=== PATIENT | male | born 1985 | race Two or more races ===

== ENCOUNTER 2023-08-18 20:06 | Outpatient (CLI) | payer OTHER | END 2023-08-18 23:59 | disposition critical access hospital (66) | LOC: EMS 20:06 | DX: R45.851 Suicidal ideations (principal) | CPT/HCPCS: A0425; A0429 ==

== ENCOUNTER 2023-08-18 20:36 | Emergency (ER) | payer OTHER ==
[2023-08-18 21:17] LABS: MUDS CUTOFF CONCENTRATIONS CUTOFF CONC BELOW:
[2023-08-18 21:23] LABS: BILIRUBIN,URINE NEGATIVE (NEGATIVE); GLUCOSE, URINE (UA) NEGATIVE (NEGATIVE); KETONES,URINE (UA) NEGATIVE (NEGATIVE); LEUKOCYTE ESTERASE, URINE NEGATIVE (NEGATIVE); NITRITE,URINE NEGATIVE (NEGATIVE); OCCULT BLOOD,URINE NEGATIVE (NEGATIVE); PROTEIN,URINE NEGATIVE (NEGATIVE); UROBILINOGEN,URINE 0.2 (NORMAL) E.U./dL (NORMAL)
[2023-08-18 21:24] LABS: CLARITY,URINE CLEAR (CLEAR)
[2023-08-18 21:25] LABS: BASOPHILS # (AUTO) 0.1 10^3/uL (0.0-0.1); BASOPHILS % (AUTO) 0.7 %; EOSINOPHILS # (AUTO) 0.1 10^3/uL (0.0-0.7); EOSINOPHILS % (AUTO) 1.4 %; HCT - HEMATOCRIT 43.8 % (42.0-52.0); HGB - HEMOGLOBIN 14.9 g/dL (14.0-18.0); LYMPHOCYTES # (AUTO) 1.4 10^3/uL (1.5-3.5); LYMPHOCYTES % (AUTO) 13.3 %; MEAN CORPUSCULAR HEMOGLOBIN 30.1 pg (27.0-31.0); MEAN CORPUSCULAR VOLUME 88.5 fL (80.0-94.0); MEAN PLATELET VOLUME 10.1 fL (7.4-11.4); MONOCYTES # (AUTO) 0.5 10^3/uL (0.0-1.0); NEUTROPHILS # (AUTO) 8.2 10^3/uL (1.5-6.6); NEUTROPHILS % (AUTO) 79.1 %; PLT - PLATELET COUNT 304 10^3/uL (130-450); RED BLOOD COUNT 4.95 10^6/uL (4.70-6.10); RED CELL DISTRIBUTION WIDTH 13.2 % (12.0-15.0); WHITE BLOOD COUNT 10.3 x10^3/uL (4.8-10.8)
[2023-08-18 21:35] LABS: AMPHETAMINE SCREEN,URINE NEGATIVE (NEGATIVE); BARBITURATE SCREEN,UR NEGATIVE (NEGATIVE); BENZODIAZEPINES SCREEN, URINE NEGATIVE (NEGATIVE); COCAINE SCREEN URINE NEGATIVE (NEGATIVE); METHADONE SCREEN, URINE NEGATIVE (NEGATIVE); METHAMPHETAMINES SCREEN, URINE NEGATIVE (NEGATIVE); OPIATE SCREEN, URINE NEGATIVE (NEGATIVE); OXYCODONE SCREEN, URINE NEGATIVE (NEGATIVE); PROPOXYPHENE SCREEN, URINE NEGATIVE (NEGATIVE); THC CANNABINOID SCREEN, URINE POSITIVE (NEGATIVE); TRICYCLIC ANTIDEPRESSANT,URINE NEGATIVE (NEGATIVE)
[2023-08-18 21:46] LABS: ALBUMIN 4.1 g/dL (3.2-5.5); ALBUMIN/GLOBULIN RATIO 1.5 (1.0-2.2); ALKALINE PHOSPHATASE 100 IU/L (42-121); ALT ALANINE AMINOTRANSFERASE 32 IU/L (10-60); AST ASPARTATE AMINOTRANSFERASE 16 IU/L (10-42); BILIRUBIN,TOTAL 0.9 mg/dL (0.2-1.0); BUN - BLOOD UREA NITROGEN 19 mg/dL (6-20); CALCIUM 9.5 mg/dL (8.5-10.3); CARBON DIOXIDE - CO2 25 mmol/L (21-32); CHLORIDE 102 mmol/L (101-111); CK- CREATINE KINASE 76 IU/L (30-223); CREATININE 0.9 mg/dL (0.6-1.3); ETOH - ETHANOL < 10.0 mg/dL; GFR - MDRD 93 (>89); GLUCOSE 101 mg/dL (74-104); LIPASE 20 U/L (11-82); MAGNESIUM 1.9 mg/dL (1.7-2.3); POTASSIUM 4.3 mmol/L (3.5-4.5); SODIUM 133 mmol/L (135-145); TOTAL PROTEIN 6.8 g/dL (6.4-8.9)
[2023-08-18 21:55] LABS: THYROID STIMULATING HORMONE 2.26 uIU/mL (0.34-5.60)
[2023-08-18 22:10] LABS: ACETAMINOPHEN < 0.1 ug/mL; SALICYLATE < 1.5 mg/dL
--- NOTE | 2023-08-19 00:50 | ED Physician Documentation ---
PD HPI MHE - Stated complaint Stated Complaint: MHE - Chief complaint Chief Complaint: MHE - History obtained from History obtained from: Patient - Additional information Additional information: Patient is a 38-year-old male with a history of bipolar presenting for evaluation of suicidal thoughts. He states that these have been ongoing for the past 3 years but worsening here recently. He lost his home so was staying with some friends and they talk to him today about needing to leave it which made him feel worse. Patient states that he did try to overdose on trazodone 6 months ago but never sought help for this. He has cut himself in the past. He is currently on fluoxetine and has a psychiatrist as well as a therapist through the [facility]. He states he has never been hospitalized previously for mental health reasons. Review of Systems Constitutional: denies: Fever Cardiac: denies: Chest pain / pressure Respiratory: denies: Dyspnea, Cough GI: denies: Abdominal Pain Psychiatric: reports: Depressed PD PAST MEDICAL HISTORY - Past Medical History Past Medical History: Yes Cardiovascular: Hypertension Psych: Depression, Bipolar disorder, Post traumatic stress disorder - Past Surgical History Past Surgical History: No - Present Medications Home Medications: Ambulatory Orders Medication Instructions Recorded Confirmed FLUoxetine [PROzac] 40 mg PO DAILY 08/18/23 08/18/23 Propranolol HCl 20 mg PO DAILY PRN 08/18/23 08/18/23 - Allergies Allergies/Adverse Reactions: Allergies Allergy/AdvReac Type Severity Reaction Status Date / Time No Known Drug Allergies Allergy Verified 08/18/23 21:14 - Social History Does the pt smoke?: No Smoking Status: Former smoker Does the pt drink ETOH?: No Does the pt have substance abuse?: No Substance Use and Type: Marijuana PD ED PE NORMAL - General General: Alert and oriented X 3, No acute distress, Well developed/nourished - HEENT HEENT: Atraumatic, Moist mucous membranes, Pharynx benign - Neck Neck: Supple, no meningeal sign - Cardiac Cardiac: RRR, No murmur - Respiratory Respiratory: No respiratory distress, Clear bilaterally - Abdomen Abdomen: Soft, Non tender - Derm Derm: Warm and dry - Neuro Neuro: Alert and oriented X 3, Normal speech - Psych Psych: Normal affect Results - Vitals Vitals: Vital Signs - 24 hr 08/18/23 20:54 Temperature 36.0 C L Heart Rate 63 Respiratory 18 Rate Blood Pressure 160/98 H O2 Saturation 97 - Labs Labs: Laboratory Tests 08/18/23 08/18/23 08/18/23 09:37 20:52 21:21 WBC 10.3 RBC 4.95 Hgb 14.9 Hct 43.8 MCV 88.5 MCH 30.1 MCHC 34.0 RDW 13.2 Plt Count 304 MPV 10.1 Neut # (Auto) 8.2 H Lymph # (Auto) 1.4 L Hickman # (Auto) 0.5 Eos # (Auto) 0.1 Baso # (Auto) 0.1 Absolute Nucleated RBC 0.00 Nucleated RBC % 0.0 Sodium Potassium Chloride Carbon Dioxide Anion Gap BUN Creatinine Estimated GFR (MDRD) Glucose Calcium Magnesium Total Bilirubin AST ALT Alkaline Phosphatase Total Creatine Kinase Total Protein Albumin Globulin Albumin/Globulin Ratio Lipase TSH Urine Color YELLOW Urine Clarity CLEAR Urine pH 6.0 Ur Specific [place] 1.020 Urine Protein NEGATIVE Urine Glucose (UA) NEGATIVE Urine Ketones NEGATIVE Urine Occult Blood NEGATIVE Urine Nitrite NEGATIVE Urine Bilirubin NEGATIVE Urine Urobilinogen 0.2 (NORMAL) Ur Leukocyte Esterase NEGATIVE Ur Microscopic Review NOT INDICATED Urine Culture Comments NOT INDICATED Salicylates Urine Opiates Screen NEGATIVE Ur Oxycodone Screen NEGATIVE Urine Methadone Screen NEGATIVE Ur Propoxyphene Screen NEGATIVE Acetaminophen Ur Barbiturates Screen NEGATIVE Ur Tricyclics Screen NEGATIVE Ur Phencyclidine Scrn NEGATIVE Ur Amphetamine Screen NEGATIVE U Methamphetamines Scrn NEGATIVE U Benzodiazepines Scrn NEGATIVE Urine Cocaine Screen NEGATIVE U Cannabinoids Screen POSITIVE H Ethyl Alcohol SARS-CoV-2 (PCR) DETECTED A 08/18/23 21:21 WBC RBC Hgb Hct MCV MCH MCHC RDW Plt Count MPV Neut # (Auto) Lymph # (Auto) Hickman # (Auto) Eos # (Auto) Baso # (Auto) Absolute Nucleated RBC Nucleated RBC % Sodium 133 L Potassium 4.3 Chloride 102 Carbon Dioxide 25 Anion Gap 6.0 BUN 19 Creatinine 0.9 Estimated GFR (MDRD) 93 Glucose 101 Calcium 9.5 Magnesium 1.9 Total Bilirubin 0.9 AST 16 ALT 32 Alkaline Phosphatase 100 Total Creatine Kinase 76 Total Protein 6.8 Albumin 4.1 Globulin 2.7 Albumin/Globulin Ratio 1.5 Lipase 20 TSH 2.26 Urine Color Urine Clarity Urine pH Ur Specific [place] Urine Protein Urine Glucose (UA) Urine Ketones Urine Occult Blood Urine Nitrite Urine Bilirubin Urine Urobilinogen Ur Leukocyte Esterase Ur Microscopic Review Urine Culture Comments Salicylates < 1.5 Urine Opiates Screen Ur Oxycodone Screen Urine Methadone Screen Ur Propoxyphene Screen Acetaminophen < 0.1 Ur Barbiturates Screen Ur Tricyclics Screen Ur Phencyclidine Scrn Ur Amphetamine Screen U Methamphetamines Scrn U Benzodiazepines Scrn Urine Cocaine Screen U Cannabinoids Screen Ethyl Alcohol < 10.0 SARS-CoV-2 (PCR) PD Medical Decision Making - ED course Complexity details: reviewed results, re-evaluated patient, d/w patient ED course: Patient is a 38-year-old male presenting for evaluation of suicidal thoughts and worsening depression. He is here voluntarily. Vital signs are stable. Mental health screening labs were obtained and reviewed. COVID-positive. Patient is currently asymptomatic. Reports having cough and congestion starting 08/13/23 which lasted 3-4 days but since has been feeling fine in that regard. Telepsychiatry consult Has been completed and patient is recommended for inpatient treatment. He is voluntary. I have ordered medications per the re commendations. Patient has remained cooperative. He is awaiting placement and will be signed out to oncoming provider at shift change. 0330 - Patient has been seen by telepsychiatry. Recommending inpatient care. Recommendations for continuing Prozac 40 mg and starting propanolol 20 mg twice daily to help manage anxiety. Departure - Departure Clinical Impression: Depression, Suicidal thoughts, COVID-19 Condition: Stable Forms: PCP List
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
[2023-08-19] MEDS: FLUoxetine 10 MG CAPSULE PO SCH (09:46)
[2023-08-19] MEDS: PROPRANOLOL 10 MG TABLET PO SCH ×2 (09:46→20:56)
[2023-08-19] MEDS ORDERED: LORazepam 1 MG TABLET PO STA (14:17)
--- NOTE | 2023-08-19 18:34 | ED Physician Documentation ---
ED Addendum - Addendum Addendum: 08/19/23 18:34 He has been calm and cooperative on my shift without complaints. [facility] is looking for beds but has not found anything yet. Care back to Dr. Campbell at 7 PM shift change pending hopeful placement, but given that it is Sunday evening that is looking less likely for today.
[2023-08-20] MEDS: PROPRANOLOL 10 MG TABLET PO SCH ×2 (09:33→22:43)
[2023-08-20] MEDS: FLUoxetine 10 MG CAPSULE PO SCH (09:34)
--- NOTE | 2023-08-20 13:35 | ED Physician Documentation ---
ED Addendum - Addendum Addendum: 08/20/23 13:35 The patient is feeling well still again today. He is pleasant and cooperative. He has not been ill for over a week. He did test positive for COVID yesterday but has not had current symptoms. Presumably at the tail end of his illness. I talked with him and shared decision is to repeat the COVID test today to see if he is now negative which would reinforce the idea of past his illness and may help with the current barrier finding a placement for him due to that.
[2023-08-20] MEDS ORDERED: LORazepam 2 MG/ML VIAL IVP STA (22:49)
[2023-08-20] MEDS ORDERED: LORazepam 1 MG TABLET PO STA (23:04)
[2023-08-21 00:20] VITALS: BP 145/97; O2SAT 98
--- NOTE | 2023-08-21 03:24 | ED Physician Documentation ---
ED Addendum - Addendum Addendum: 08/21/23 03:21 Received signout/turnover of care from Dr. Eisenberg. At the time of signout, there is ongoing effort to find available bed at an appropriate facility for this patient's depression and suicidal ideation. Fortunately, during my shift, a bed became available at the [facility]. At 03:23, ambulance is here to transport patient to the [facility].
== END 2023-08-21 03:48 ==
LOC: ED 20:36
DX: F32.A Depression, unspecified (principal); U07.1 COVID-19; R45.851 Suicidal ideations; I10 Essential (primary) hypertension; Z87.891 Personal history of nicotine dependence; Z79.899 Other long term (current) drug therapy
CPT/HCPCS: 36415; 80053; 80306; 80307; 80320; 80329; 81003; 82550; 83690; 83735; 84443; 85025; 87635; 99285; A9270; G0427; J8499; Q3014; 81001; 87086